=== PATIENT | female | born 1970 | race African-American/Black ===

== ENCOUNTER 2019-03-09 14:21 | Emergency (ER) | payer MEDICAID ==
[~2019-03-09] VITALS: Ht 170.2 cm; Wt 73.0 kg
[2019-03-09] MEDS ORDERED: IBUPROFEN 400MG TABLET PO ONE (16:45)
[2019-03-09 17:28] VITALS: BP 105/84
== END 2019-03-09 19:22 | disposition left against medical advice (07) ==
LOC: ER 14:21
DX: S63.104A Unspecified dislocation of right thumb, initial encounter (principal); X58.XXXA Exposure to other specified factors, initial encounter; Y93.89 Activity, other specified; Y92.89 Other specified places as the place of occurrence of the external cause; Y99.8 Other external cause status
CPT/HCPCS: 73130; 99283